=== PATIENT | male | born 1990 | race Caucasian/White ===

== ENCOUNTER 2017-08-07 14:48 | Inpatient (IN) | payer OTHER ==
[2017-08-07 15:12] LABS: ADD MAN DIFF? NO
[2017-08-07 15:14] LABS: BASO # 0.1 x10^3/uL (0.0-0.2); BASO % 1 % (0-3); EOS # 0.1 x10^3/uL (0.0-0.7); EOS % 1 % (0-3); HEMATOCRIT 45.7 % (39.0-53.0); HEMOGLOBIN 15.3 g/dL (13.0-17.5); LYMPH # 2.4 x10^3/uL (1.0-4.8); LYMPH % 28 % (24-48); MEAN CORPUSCULAR HEMOGLOBIN 30 pg (25-35); MEAN CORPUSCULAR HGB CONC 33 g/dL (31-37); MEAN CORPUSCULAR VOLUME 89 fL (79-100); MONO # 0.5 x10^3/uL (0.0-1.1); MONO % 6 % (0-9); NEUT # 5.6 x10^3uL (1.8-7.7); NEUT % 65 % (31-73); PLATELET COUNT 315 x10^3/uL (140-400); RED BLOOD COUNT 5.13 x10^6/uL (4.30-5.70); RED CELL DISTRIBUTION WIDTH 12.4 % (11.5-14.5); WHITE BLOOD COUNT 8.7 x10^3/uL (4.0-11.0)
[2017-08-07] MEDS: IV NORMAL SALINE 1000ML BAG 1,000 ML IV ×2 (15:15)
[2017-08-07 15:24] LABS: ANION GAP 10 (6-14); BLOOD UREA NITROGEN 12 mg/dL (8-26); CARBON DIOXIDE 30 mmol/L (21-32); CHLORIDE 100 mmol/L (98-107); CREATININE 0.9 mg/dL (0.7-1.3); GFR 102.8; GLUCOSE 96 mg/dL (70-99); POTASSIUM 3.8 mmol/L (3.5-5.1); SODIUM 140 mmol/L (136-145)
[2017-08-07 15:35] LABS: TROPONINI < 0.017 ng/mL (0.000-0.055)
[2017-08-07 16:04] LABS: ALBUMIN 4.2 g/dL (3.4-5.0); ALK PHOS 72 U/L (46-116); ALT (SGPT) 28 U/L (16-63); AST (SGOT) 16 U/L (15-37); DIRECT BILIRUBIN 0.1 mg/dL (0.0-0.2); MAGNESIUM 1.8 mg/dL (1.8-2.4); TOTAL BILIRUBIN 0.5 mg/dL (0.2-1.0); TOTAL PROTEIN 8.3 g/dL (6.4-8.2)
[2017-08-07 16:15] LABS: THYROID STIM HORMONE (TSH) 1.307 uIU/mL (0.358-3.74)
[2017-08-07 16:32] LABS: BARBITURATES NEG (NEG); BENZODIAZEPINES NEG (NEG); CANNABINOIDS NEG (NEG); COCAINE NEG (NEG); METHADONE NEG (NEG); OPIATES NEG (NEG); PHENCYCLIDINE NEG (NEG)
[2017-08-07 16:41] LABS: AMPHETAMINE/METHAMPHETAMINE NEG (NEG); ETHANOL, URINE NEG (NEG)
[2017-08-07] MEDS: METOPROLOL TART IMMED RELEASE 25 MG TABLET. PO ×2 (20:58)
[2017-08-07 22:16] LABS: FREE T4 1.23 ng/dL (0.76-1.46)
[2017-08-07] MEDS: ENOXAPARIN 40 MG/0.4 ML SYRINGE. SQ ×2 (22:28)
== END 2017-08-08 16:00 | disposition home or self-care (01) | DRG 310 ==
LOC: ER 14:48 → 6 SOUTH 16:17
DX: I47.1 Supraventricular tachycardia (principal); F10.20 Alcohol dependence, uncomplicated; F15.10 Other stimulant abuse, uncomplicated; F41.9 Anxiety disorder, unspecified; I45.10 Unspecified right bundle-branch block; R00.2 Palpitations
CPT/HCPCS: 36415; 71046; 80048; 80076; 80307; 83735; 84439; 84443; 84484; 85025; 93005; 93306; 96360; 99285; 99285-25; J1650; J7030